=== PATIENT | female | born 1970 | race Caucasian/White ===

== ENCOUNTER 2021-10-01 23:19 | Emergency (ER) | payer SELFPAY ==
[~2021-10-01] VITALS: Ht 165.1 cm; Wt 68.0 kg
[2021-10-02] MEDS ORDERED: KETOROLAC TROMETH 30 MG/ML 1ML VIAL IV ONE (00:30)
[2021-10-02] MEDS ORDERED: ACETAMINOPHEN 325 MG TAB PO ONE (00:30)
[2021-10-02 00:43] LABS: Basophils # (auto) 0.1 10 ^3/uL (0-0.2); Basophils % (auto) 0.5 % (0.0-2.0); Eosinophils # (auto) 0.1 10 ^3/uL (0-0.8); Eosinophils % (auto) 0.4 % (0.0-7.0); Hematocrit 33.5 % (36.0-46.0); Hemoglobin 11.6 g/dL (12.2-16.2); Lymphocytes # (auto) 3.7 10 ^3/uL (0.4-5.4); Lymphocytes % (auto) 23.7 % (10.0-50.0); Mean Corpuscular Hemoglobin 33.3 pg (28.0-32.0); Mean Corpuscular Hgb Conc. 34.5 g/dL (32.0-36.0); Mean Corpuscular Volume 96.4 fL (80.0-100.0); Monocytes # (auto) 1.3 10 ^3/uL (0-1.3); Neutrophils # (auto) 10.5 10 ^3/uL (1.6-8.6); Neutrophils % (auto) 67.4 % (37.0-80.0); Red Blood Cells 3.48 10^6/uL (4.0-5.20); Red Cell Distribution Width 13.8 % (11.8-14.3); White Blood Cell 15.6 10^3/uL (4.4-10.8)
[2021-10-02 00:58] LABS: INR 1.04 (0.9-1.15); Partial Thromboplastin Time 28.5 sec (23.6-33.0)
[2021-10-02 01:06] LABS: Magnesium 2.2 mg/dL (1.6-2.6)
[2021-10-02] MEDS ORDERED: ASPirin 325 MG TAB PO ONE (01:45)
[2021-10-02 02:04] LABS: Albumin 2.8 g/dL (3.4-5.0); Calcium 8.5 mg/dL (8.5-10.1); Potassium 3.6 mmol/L (3.5-5.1)
[2021-10-02 02:07] LABS: Bilirubin, Total 0.4 mg/dL (0.2-1.0); Total Protein 6.5 g/dL (6.4-8.2)
[2021-10-02] MEDS ORDERED: IBUP600T27 PO ×2 (05:28→06:03)
[2021-10-02] MEDS ORDERED: BENZ100C19 PO ×2 (05:28→06:03)
[2021-10-02] MEDS ORDERED: DOXY100C2 PO ×2 (05:28→06:03)
[2021-10-02 05:34] VITALS: BP 147/78
== END 2021-10-02 06:49 | disposition home or self-care (01) ==
LOC: EDBD 23:19 → ER 23:19
DX: J20.9 Acute bronchitis, unspecified (principal); K42.9 Umbilical hernia without obstruction or gangrene; I10 Essential (primary) hypertension; Z20.822 Contact with and (suspected) exposure to COVID-19
CPT/HCPCS: 36415; 71045; 74176; 80053; 83690; 83735; 84484; 85025; 85610; 85730; 87426; 93005; 96374; 99285; J1885

== ENCOUNTER 2021-10-07 18:47 | Emergency (ER) | payer SELFPAY ==
[~2021-10-07] VITALS: Ht 167.6 cm; Wt 87.1 kg
[~2021-10-07 18:47] MED LIST: BENZ100C19 PO; DOXY100C2 PO; IBUP600T27 PO
[2021-10-07 20:17] LABS: Basophils # (auto) 0.1 10 ^3/uL (0-0.2); Basophils % (auto) 0.6 % (0.0-2.0); Eosinophils # (auto) 0.2 10 ^3/uL (0-0.8); Eosinophils % (auto) 2.8 % (0.0-7.0); Hematocrit 37.5 % (36.0-46.0); Hemoglobin 12.8 g/dL (12.2-16.2); Lymphocytes # (auto) 2.9 10 ^3/uL (0.4-5.4); Lymphocytes % (auto) 34.3 % (10.0-50.0); Mean Corpuscular Hemoglobin 32.8 pg (28.0-32.0); Mean Corpuscular Hgb Conc. 34.1 g/dL (32.0-36.0); Mean Corpuscular Volume 96.3 fL (80.0-100.0); Monocytes # (auto) 0.5 10 ^3/uL (0-1.3); Monocytes % (auto) 6.5 % (0.0-12.0); Neutrophils # (auto) 4.7 10 ^3/uL (1.6-8.6); Neutrophils % (auto) 55.8 % (37.0-80.0); Nucleated Red Blood Cells % 0.2 %; Red Cell Distribution Width 13.6 % (11.8-14.3); White Blood Cell 8.4 10^3/uL (4.4-10.8)
[2021-10-07 20:32] LABS: Albumin 3.3 g/dL (3.4-5.0); BUN/Creatinine Ratio 22.3; Calcium 8.9 mg/dL (8.5-10.1); Potassium 3.7 mmol/L (3.5-5.1)
[2021-10-07 20:35] LABS: Bilirubin, Total 0.2 mg/dL (0.2-1.0); Total Protein 8.2 g/dL (6.4-8.2)
[2021-10-07 22:32] VITALS: BP 156/94
== END 2021-10-07 22:38 | disposition home or self-care (01) ==
LOC: EDBD 18:47 → ER 18:49
DX: K42.9 Umbilical hernia without obstruction or gangrene (principal); F17.210 Nicotine dependence, cigarettes, uncomplicated; F12.10 Cannabis abuse, uncomplicated; F15.10 Other stimulant abuse, uncomplicated
CPT/HCPCS: 36415; 74176; 80053; 82150; 83690; 85025

== ENCOUNTER 2021-11-05 23:06 | Emergency (ER) | payer SELFPAY ==
[~2021-11-05] VITALS: Ht 165.1 cm; Wt 68.0 kg
[2021-11-06 00:20] VITALS: BP 134/88
== END 2021-11-06 01:43 | disposition home or self-care (01) ==
LOC: ER 23:06
DX: S70.01XA Contusion of right hip, initial encounter (principal); F12.10 Cannabis abuse, uncomplicated; F15.10 Other stimulant abuse, uncomplicated; F17.210 Nicotine dependence, cigarettes, uncomplicated; I10 Essential (primary) hypertension; X58.XXXA Exposure to other specified factors, initial encounter; Y93.89 Activity, other specified; Y92.89 Other specified places as the place of occurrence of the external cause; Y99.8 Other external cause status
CPT/HCPCS: 73502

== ENCOUNTER 2021-11-08 17:39 | Inpatient (IN) | payer MEDICAID, OTHER ==
[~2021-11-08] VITALS: Ht 165.1 cm; Wt 71.9 kg
[2021-11-08] MEDS ORDERED: ONDANSETRON HCL 4 MG/2 ML VIAL IV ONE (18:15)
[2021-11-08] MEDS ORDERED: SODIUM CHLORIDE 0.9% 500 ML IVB ONE (18:15)
[2021-11-08] MEDS ORDERED: MORPHINE SULFATE 4 MG/ML SYR/VIAL IV ONE (18:15)
[2021-11-08] MEDS ORDERED: PANTOPRAZOLE 40 MG/10 ML VIAL INJ IV ONE (18:15)
[2021-11-08 19:50] LABS: Basophils # (auto) 0.1 10 ^3/uL (0-0.2); Basophils % (auto) 0.6 % (0.0-2.0); Eosinophils # (auto) 0.2 10 ^3/uL (0-0.8); Eosinophils % (auto) 1.9 % (0.0-7.0); Hematocrit 40.8 % (36.0-46.0); Lymphocytes # (auto) 5.2 10 ^3/uL (0.4-5.4); Lymphocytes % (auto) 52.9 % (10.0-50.0); Mean Corpuscular Hemoglobin 32.2 pg (28.0-32.0); Mean Corpuscular Hgb Conc. 34.3 g/dL (32.0-36.0); Mean Corpuscular Volume 93.8 fL (80.0-100.0); Monocytes # (auto) 0.6 10 ^3/uL (0-1.3); Monocytes % (auto) 5.7 % (0.0-12.0); Neutrophils # (auto) 3.8 10 ^3/uL (1.6-8.6); Neutrophils % (auto) 38.9 % (37.0-80.0); Nucleated Red Blood Cells % 0.1 %; Red Blood Cells 4.35 10^6/uL (4.0-5.20); Red Cell Distribution Width 13.5 % (11.8-14.3); White Blood Cell 9.8 10^3/uL (4.4-10.8)
[2021-11-08 19:56] LABS: Calcium 9.1 mg/dL (8.5-10.1); Potassium 3.2 mmol/L (3.5-5.1)
[2021-11-08 19:59] LABS: BUN/Creatinine Ratio 13.1; Bilirubin, Total 0.4 mg/dL (0.2-1.0); Total Protein 8.3 g/dL (6.4-8.2)
[2021-11-08 20:40] LABS: INR 1.05 (0.9-1.15); Partial Thromboplastin Time 27.4 sec (23.6-33.0)
[2021-11-08] MEDS ORDERED: POTASSIUM CHL 20 Meq TABLET PO ONE (22:00)
[2021-11-08] MEDS ORDERED: ACETAMINOPHEN 325 MG TAB PO PRN (22:00)
[2021-11-08] MEDS ORDERED: ONDANSETRON HCL 4 MG/2 ML VIAL IV PRN (22:00)
[2021-11-08] MEDS: amLODIPine BESYLATE 5 MG TAB PO SCH (23:20)
[2021-11-09] MEDS: MORPHINE SULFATE 4 MG/ML SYR/VIAL IV PRN ×4 (02:50→22:37)
[2021-11-09 04:00] VITALS: BP 159/92
[2021-11-09 04:30] VITALS: BP 159/92
[2021-11-09] MEDS: LEVOTHYROXINE SODIUM 25 MCG TAB PO SCH (06:11)
[2021-11-09] MEDS: HYDROcodone-ACET 5/325MG TAB PO PRN (06:12)
[2021-11-09 08:02] LABS: BUN/Creatinine Ratio 11.5; Calcium 7.9 mg/dL (8.5-10.1)
[2021-11-09 08:44] VITALS: BP 135/78
[2021-11-09] MEDS: amLODIPine BESYLATE 5 MG TAB PO SCH ×2 (09:34→22:00)
[2021-11-09] MEDS ORDERED: HYDROmorphone HCL 2 MG/ML VL IV ONE (12:15)
[2021-11-09] MEDS: HYDROCORTONE 1% TOPICAL CREAM 30 GM TUBE TOP SCH ×2 (12:18→22:36)
[2021-11-09 12:58] VITALS: BP 141/91
[2021-11-09] MEDS ORDERED: D5W/SOD CHL 0.45%/KCL 40MEQ 1,000 ML IV SCH (13:00)
[2021-11-09] MEDS: ceFAZolin 1GM/50ML 50 ML IV SCH ×2 (14:00→22:35)
[2021-11-09] MEDS: SOD CHL 0.9%/ KCL 20MEQ 1,000 ML IV SCH (15:00)
[2021-11-09] MEDS ORDERED: MAGNESIUM OXIDE 400 MG TAB PO ONE (15:00)
[2021-11-09] MEDS ORDERED: POTASSIUM CHL 20 Meq TABLET PO ONE (15:00)
[2021-11-09 17:00] VITALS: BP 114/85
[2021-11-09 22:00] VITALS: BP 134/83
[2021-11-10] MEDS: SOD CHL 0.9%/ KCL 20MEQ 1,000 ML IV SCH (04:20)
[2021-11-10] MEDS: MORPHINE SULFATE 4 MG/ML SYR/VIAL IV PRN (05:02)
[2021-11-10 05:10] VITALS: BP 124/87
[2021-11-10 05:44] LABS: Calcium 8.4 mg/dL (8.5-10.1); Magnesium 2.2 mg/dL (1.6-2.6); Potassium 4.3 mmol/L (3.5-5.1)
[2021-11-10 05:47] LABS: BUN/Creatinine Ratio 14.8
[2021-11-10] MEDS: ceFAZolin 1GM/50ML 50 ML IV SCH (06:00)
[2021-11-10] MEDS ORDERED: SUCCINYLCHOLINE CHLORIDE 20 MG/ML 10ML VIAL IV ONE (06:56)
[2021-11-10] MEDS ORDERED: ROCURONIUM 10MG/ML 10ML VIAL IV ONE (06:56)
[2021-11-10] MEDS: LEVOTHYROXINE SODIUM 25 MCG TAB PO SCH (07:00)
[2021-11-10] MEDS ORDERED: MIDAZOLAM HCL 2MG/2ML 2ml VIAL (1mg/ml) ONE (07:06)
[2021-11-10] MEDS ORDERED: DexAMETHasone SOD PHOS 10MG/1ML VIAL INJ ONE (07:06)
[2021-11-10] MEDS ORDERED: ONDANSETRON HCL 4 MG/2 ML VIAL ONE (07:06)
[2021-11-10] MEDS ORDERED: SODIUM CHLORIDE LOCK 10 ML ONE (07:06)
[2021-11-10] MEDS ORDERED: fentaNYL CITRATE 100 MCG/2 ML VL ONE (07:06)
[2021-11-10] MEDS ORDERED: NEOSTIGMINE 1 MG/ML INJ (10mg/10ML VIAL) ONE (07:06)
[2021-11-10] MEDS ORDERED: GLYCOPYRROLATE 0.2 MG/ML 1ML VIAL ONE (07:06)
[2021-11-10] MEDS ORDERED: BUPIVACAINE W/ EPINEPH 0.25% INJ 50ML MDV ONE (07:33)
[2021-11-10] MEDS ORDERED: ceFAZolin 1GM/50ML 100 ML IV ONE (07:36)
[2021-11-10] MEDS ORDERED: KETOROLAC TROMETH 30 MG/ML 1ML VIAL IV ONE (07:45)
[2021-11-10] MEDS ORDERED: MORPHINE SULFATE 4 MG/ML SYR/VIAL IV PRN (07:45)
[2021-11-10] MEDS ORDERED: METOCLOPRAMIDE HCL 5MG/ml INJ 2ml VIAL IV PRN (07:45)
[2021-11-10] MEDS ORDERED: fentaNYL CITRATE 100 MCG/2 ML VL IV PRN (07:45)
[2021-11-10] MEDS ORDERED: ALBUTEROL SULF 2.5 MG/0.5ML(0.5%) NEB SOLN NEB ONE (08:00)
[2021-11-10] MEDS ORDERED: IPRATROPIUM BROM 0.5 MG/2.5ML INH SOL ONE (08:00)
[2021-11-10] MEDS ORDERED: IPRATROPIUM BROM 0.5 MG/2.5ML INH SOL NEB ONE (08:00)
[2021-11-10] MEDS: D5W/SOD CHL 0.45%/KCL 20MEQ 1,000 ML IV SCH ×2 (09:00→17:20)
[2021-11-10] MEDS: HYDROmorphone HCL 2 MG/ML VL IV PRN ×4 (09:33→21:13)
[2021-11-10] MEDS: HYDROCORTONE 1% TOPICAL CREAM 30 GM TUBE TOP SCH (10:00)
[2021-11-10] MEDS: amLODIPine BESYLATE 5 MG TAB PO SCH ×2 (10:00→22:00)
[2021-11-10] MEDS ORDERED: ceFAZolin 1GM/50ML 50 ML IV ONE (14:00)
[2021-11-10] MEDS: HYDROcodone-ACET 5/325MG TAB PO PRN (23:33)
[2021-11-11] MEDS: HYDROmorphone HCL 2 MG/ML VL IV PRN ×6 (00:18→20:48)
[2021-11-11] MEDS: HYDROCORTONE 1% TOPICAL CREAM 30 GM TUBE TOP SCH ×3 (00:43→22:00)
[2021-11-11] MEDS: D5W/SOD CHL 0.45%/KCL 20MEQ 1,000 ML IV SCH ×3 (04:31→18:20)
[2021-11-11 05:00] VITALS: BP 115/70
[2021-11-11 05:35] LABS: Basophils # (auto) 0 10 ^3/uL (0-0.2); Basophils % (auto) 0.1 % (0.0-2.0); Eosinophils # (auto) 0 10 ^3/uL (0-0.8); Hematocrit 35.8 % (36.0-46.0); Hemoglobin 12.1 g/dL (12.2-16.2); Lymphocytes # (auto) 2.5 10 ^3/uL (0.4-5.4); Lymphocytes % (auto) 20.2 % (10.0-50.0); Mean Corpuscular Hemoglobin 32.5 pg (28.0-32.0); Mean Corpuscular Hgb Conc. 33.9 g/dL (32.0-36.0); Mean Corpuscular Volume 95.9 fL (80.0-100.0); Monocytes # (auto) 0.5 10 ^3/uL (0-1.3); Monocytes % (auto) 4.1 % (0.0-12.0); Neutrophils # (auto) 9.3 10 ^3/uL (1.6-8.6); Neutrophils % (auto) 75.6 % (37.0-80.0); Red Blood Cells 3.73 10^6/uL (4.0-5.20); Red Cell Distribution Width 13.5 % (11.8-14.3); White Blood Cell 12.3 10^3/uL (4.4-10.8)
[2021-11-11 06:02] LABS: Calcium 8.9 mg/dL (8.5-10.1); Magnesium 2.3 mg/dL (1.6-2.6); Potassium 4.5 mmol/L (3.5-5.1)
[2021-11-11 06:04] LABS: BUN/Creatinine Ratio 18.4
[2021-11-11] MEDS: LEVOTHYROXINE SODIUM 25 MCG TAB PO SCH (06:26)
[2021-11-11 08:00] VITALS: BP 159/88
[2021-11-11] MEDS: hydrALAZINE HCL 20 MG/ML VL IV PRN (08:31)
[2021-11-11] MEDS: amLODIPine BESYLATE 5 MG TAB PO SCH ×2 (10:00→22:00)
[2021-11-11 12:00] VITALS: BP 145/97
[2021-11-11 16:00] VITALS: BP 153/93
[2021-11-11 22:00] VITALS: BP 149/88
[2021-11-12] MEDS: D5W/SOD CHL 0.45%/KCL 20MEQ 1,000 ML IV SCH ×3 (02:40→23:29)
[2021-11-12] MEDS: HYDROmorphone HCL 2 MG/ML VL IV PRN ×2 (04:30→09:34)
[2021-11-12 05:00] VITALS: BP 160/94
[2021-11-12] MEDS: hydrALAZINE HCL 20 MG/ML VL IV PRN (05:23)
[2021-11-12] MEDS: LEVOTHYROXINE SODIUM 25 MCG TAB PO SCH (06:50)
[2021-11-12 09:00] VITALS: BP 140/88
[2021-11-12] MEDS: amLODIPine BESYLATE 5 MG TAB PO SCH ×2 (09:34→21:47)
[2021-11-12] MEDS: HYDROCORTONE 1% TOPICAL CREAM 30 GM TUBE TOP SCH ×2 (09:49→21:47)
[2021-11-12] MEDS ORDERED: KETOROLAC TROMETH 30 MG/ML 1ML VIAL IV PRN (11:00)
[2021-11-12 13:00] VITALS: BP 137/67
[2021-11-12] MEDS: ACETAMINOPHEN/CODEINE#3 (300/30mg) TAB PO PRN ×2 (13:05→18:30)
[2021-11-12 17:00] VITALS: BP 139/89
[2021-11-12 22:00] VITALS: BP 156/86
[2021-11-13] MEDS: ACETAMINOPHEN/CODEINE#3 (300/30mg) TAB PO PRN (00:57)
[2021-11-13] MEDS: D5W/SOD CHL 0.45%/KCL 20MEQ 1,000 ML IV SCH ×2 (03:40→12:11)
[2021-11-13 05:00] VITALS: BP 151/102
[2021-11-13] MEDS: hydrALAZINE HCL 20 MG/ML VL IV PRN (05:34)
[2021-11-13] MEDS: LEVOTHYROXINE SODIUM 25 MCG TAB PO SCH (06:18)
[2021-11-13] MEDS ORDERED: ACETAMINOPHEN/CODEINE#3 (300/30mg) TAB PO PRN (07:30)
[2021-11-13] MEDS: amLODIPine BESYLATE 5 MG TAB PO SCH ×2 (08:40→21:14)
[2021-11-13] MEDS: HYDROCORTONE 1% TOPICAL CREAM 30 GM TUBE TOP SCH ×2 (08:41→21:14)
[2021-11-13 09:02] VITALS: BP 192/93
[2021-11-13 12:41] VITALS: BP 117/89
[2021-11-13 17:00] VITALS: BP 114/72
[2021-11-13] MEDS: traMADol HCL 50 MG TAB PO PRN ×2 (18:44→22:44)
[2021-11-13 21:49] VITALS: BP 118/86
[2021-11-14 05:00] VITALS: BP 100/64
[2021-11-14] MEDS: LEVOTHYROXINE SODIUM 25 MCG TAB PO SCH (06:10)
[2021-11-14] MEDS: traMADol HCL 50 MG TAB PO PRN ×3 (06:11→20:23)
[2021-11-14] MEDS ORDERED: GASTROGRAFIN 120 ML SOL ONE (07:45)
[2021-11-14 08:45] VITALS: BP 125/85
[2021-11-14] MEDS: amLODIPine BESYLATE 5 MG TAB PO SCH ×2 (11:58→22:51)
[2021-11-14] MEDS: HYDROCORTONE 1% TOPICAL CREAM 30 GM TUBE TOP SCH ×2 (11:58→22:51)
[2021-11-14 12:39] VITALS: BP 142/92
[2021-11-14 16:15] VITALS: BP 152/94
[2021-11-14 20:00] VITALS: BP 125/85
[2021-11-14 22:00] VITALS: BP 148/89
[2021-11-14] MEDS: TEMAZEPAM 15 MG CAP PO PRN (22:52)
[2021-11-15 05:00] VITALS: BP 160/91
[2021-11-15 05:09] LABS: Hematocrit 35.4 % (36.0-46.0); Hemoglobin 12.4 g/dL (12.2-16.2); Mean Corpuscular Hemoglobin 32.5 pg (28.0-32.0); Mean Corpuscular Hgb Conc. 35.1 g/dL (32.0-36.0); Mean Corpuscular Volume 92.6 fL (80.0-100.0); Red Blood Cells 3.82 10^6/uL (4.0-5.20); Red Cell Distribution Width 13.3 % (11.8-14.3); White Blood Cell 6.7 10^3/uL (4.4-10.8)
[2021-11-15 05:19] LABS: Band Neutrophils % (manual) 0; Basophils % (manual) 0 (0.0-2.0); Blast Cells 0; Metamyelocytes % 0; Myelocytes % 0; Promyelocytes % 0
[2021-11-15 05:38] LABS: Potassium 3.8 mmol/L (3.5-5.1)
[2021-11-15 05:42] LABS: BUN/Creatinine Ratio 7.6; Calcium 8.5 mg/dL (8.5-10.1)
[2021-11-15 07:11] LABS: Eosinophils % (manual) 5 (0-7); Lymphocytes % (manual) 45 (10.0-50.0); Monocytes % (manual) 7 (0-12); Reactive Lymphocytes 13
[2021-11-15] MEDS: LEVOTHYROXINE SODIUM 25 MCG TAB PO SCH (07:27)
[2021-11-15] MEDS: traMADol HCL 50 MG TAB PO PRN ×4 (07:28→21:29)
[2021-11-15 08:30] VITALS: BP 143/88
[2021-11-15] MEDS: amLODIPine BESYLATE 5 MG TAB PO SCH ×2 (10:00→22:09)
[2021-11-15] MEDS: HYDROCORTONE 1% TOPICAL CREAM 30 GM TUBE TOP SCH ×2 (10:00→22:09)
[2021-11-15 12:30] VITALS: BP 137/90
[2021-11-15 17:00] VITALS: BP 146/90
[2021-11-15] MEDS: TEMAZEPAM 15 MG CAP PO PRN ×2 (21:29→23:19)
[2021-11-15 22:00] VITALS: BP 135/78
[2021-11-16 05:00] VITALS: BP 125/84
[2021-11-16] MEDS: LEVOTHYROXINE SODIUM 25 MCG TAB PO SCH (05:24)
[2021-11-16 09:14] VITALS: BP 113/74
[2021-11-16] MEDS: amLODIPine BESYLATE 5 MG TAB PO SCH (09:20)
[2021-11-16] MEDS: HYDROCORTONE 1% TOPICAL CREAM 30 GM TUBE TOP SCH (09:20)
[2021-11-16 12:00] VITALS: BP 140/83
[2021-11-16 12:45] VITALS: BP 140/83
== END 2021-11-16 15:37 | disposition home or self-care (01) | DRG 227 ==
LOC: ER 17:39 → OVERFLOW 21:52 → WEST WING 11-09 03:42
PROVIDERS: ADMIT Nurse Practitioner; ATTEND Internal Medicine
PROC: 0WQF0ZZ Repair Abdominal Wall, Open Approach (ICD-10-PCS; principal; 2021-11-08)
DX: K43.6 Other and unspecified ventral hernia with obstruction, without gangrene (principal); N17.0 Acute kidney failure with tubular necrosis; E03.9 Hypothyroidism, unspecified; E87.6 Hypokalemia; N18.9 Chronic kidney disease, unspecified; F17.210 Nicotine dependence, cigarettes, uncomplicated; Z20.822 Contact with and (suspected) exposure to COVID-19; I12.9 Hypertensive chronic kidney disease with stage 1 through stage 4 chronic kidney disease, or unspecified chronic kidney disease; Z85.850 Personal history of malignant neoplasm of thyroid; Z71.6 Tobacco abuse counseling; Z59.00 Homelessness unspecified
CPT/HCPCS: 36415; 71045; 74176; 74250; 80048; 80053; 82150; 83690; 83735; 84702; 85007; 85025; 85027; 85610; 85730; 88302; 93005; 94640; 96361; 96374; 96375; 96376; 97163; C9113; G0378; J0330; J0690; J1100; J1885; J2250; J2405